=== PATIENT | female | born 1930 | race Caucasian/White ===

== ENCOUNTER 2017-01-22 05:58 | Day surgery (SDC) | payer MEDICARE, OTHER ==
[~2017-01-22] VITALS: Ht 162.6 cm; Wt 90.7 kg
[~2017-01-22 05:58] MED LIST: ASPIRIN LOW DOS81 M2 PO; BRILINTA90 MG PO; COUMADIN2.5 MG PO; COUMADIN4 MG PO; COUMADIN5 MG PO; ENOXAPARIN100 MG/ML SC; LASIX 20 MG20 MG/TAB PO; LISINOPRIL20 MG PO; LOPRESSOR 550 MG/TAB PO; LOTREL 5/101 CAP PO; PRILOSEC20 MG PO; TYLENOL 500MG TAB PO; WARFARIN SODIUM5 MG PO
[2017-01-22 07:42] VITALS: BP 137/70
== END 2017-01-22 08:28 | disposition home or self-care (01) ==
LOC: ORM 05:58
PROVIDERS: ATTEND Anesthesiology Pain Medicine
PROC: 3E0T33Z Introduction of Anti-inflammatory into Peripheral Nerves and Plexi, Percutaneous Approach (ICD-10-PCS; principal; 2017-01-22)
PROC: 3E0T3BZ Introduction of Anesthetic Agent into Peripheral Nerves and Plexi, Percutaneous Approach (ICD-10-PCS; 2017-01-22)
PROC: 3E0T3CZ (ICD-10-PCS; 2017-01-22)
PROC: 3E0T33Z Introduction of Anti-inflammatory into Peripheral Nerves and Plexi, Percutaneous Approach (ICD-10-PCS; 2017-01-22)
PROC: 3E0T3CZ (ICD-10-PCS; 2017-01-22)
PROC: 3E0T33Z Introduction of Anti-inflammatory into Peripheral Nerves and Plexi, Percutaneous Approach (ICD-10-PCS; 2017-01-22)
DX: M12.9 Arthropathy, unspecified (principal); M51.47 Schmorl's nodes, lumbosacral region; M47.816 Spondylosis without myelopathy or radiculopathy, lumbar region

== ENCOUNTER 2017-02-05 05:57 | Day surgery (SDC) | payer MEDICARE, OTHER ==
[~2017-02-05] VITALS: Ht 162.6 cm; Wt 90.7 kg
[~2017-02-05 05:57] MED LIST changes: +ASPIRIN ADULT L81 M2
[2017-02-05 07:51] VITALS: BP 104/55
== END 2017-02-05 08:15 | disposition home or self-care (01) ==
LOC: ORM 05:57
PROVIDERS: ATTEND Anesthesiology Pain Medicine
PROC: 3E0U33Z Introduction of Anti-inflammatory into Joints, Percutaneous Approach (ICD-10-PCS; principal; 2017-02-05)
PROC: 3E0U3BZ Introduction of Anesthetic Agent into Joints, Percutaneous Approach (ICD-10-PCS; 2017-02-05)
DX: M46.1 Sacroiliitis, not elsewhere classified (principal)

== ENCOUNTER 2017-02-19 06:09 | Day surgery (SDC) | payer MEDICARE, OTHER ==
[~2017-02-19] VITALS: Ht 162.6 cm; Wt 90.7 kg
[2017-02-19 13:56] VITALS: BP 111/59
== END 2017-02-19 08:30 | disposition home or self-care (01) ==
LOC: ORM 06:09
PROVIDERS: ATTEND Anesthesiology Pain Medicine
PROC: 3E0T3TZ Introduction of Destructive Agent into Peripheral Nerves and Plexi, Percutaneous Approach (ICD-10-PCS; principal; 2017-02-19)
DX: M54.5 Low back pain (principal)
CPT/HCPCS: Q9967

== ENCOUNTER 2017-02-28 10:41 | Emergency (ER) | payer MEDICARE, OTHER ==
[~2017-02-28] VITALS: Ht 162.6 cm; Wt 90.9 kg
[2017-02-28] MEDS ORDERED: MEDDOSEPAK PO (12:17)
[2017-02-28 12:20] VITALS: BP 158/77
== END 2017-02-28 12:25 | disposition home or self-care (01) ==
LOC: ED 10:41
DX: M53.3 Sacrococcygeal disorders, not elsewhere classified (principal); M25.552 Pain in left hip; M54.32 Sciatica, left side; I11.0 Hypertensive heart disease with heart failure; I50.9 Heart failure, unspecified; I25.10 Atherosclerotic heart disease of native coronary artery without angina pectoris; E78.00 Pure hypercholesterolemia, unspecified; Z86.718 Personal history of other venous thrombosis and embolism; Z95.1 Presence of aortocoronary bypass graft